=== PATIENT | male | born 1995 | race Caucasian/White ===

== ENCOUNTER 2016-07-30 10:14 | Emergency (ER) | payer MEDICAID ==
[~2016-07-30] VITALS: Ht 182.9 cm; Wt 63.5 kg
[2016-07-30] MEDS ORDERED: TDAP [DIPH/PERTUSSIS/TET] 0.5 ML VIAL IM ONE ×2 (10:20→10:30)
[2016-07-30] MEDS ORDERED: HYDROCODONE/APAP 10/325MG 1 EA TABLET ONE (10:20)
[2016-07-30] MEDS ORDERED: ONDANSETRON 4 MG TAB.RAPDIS ONE (10:20)
[2016-07-30] MEDS ORDERED: LIDOCAINE HCL/PF 1% 30 ML SDV ONE (10:20)
[2016-07-30] MEDS ORDERED: ONDANSETRON 4 MG TAB.RAPDIS SL ONE (10:30)
[2016-07-30] MEDS ORDERED: LIDOCAINE 1%-EPI 1:100,000 50 ML VIAL IJ ONE (10:30)
[2016-07-30] MEDS ORDERED: HYDROCODONE/APAP 10/325MG 1 EA TABLET PO ONE (10:30)
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
--- NOTE | 2016-07-30 10:50 | NUR ---
PT TAKEN TO CT.
[2016-07-30] MEDS ORDERED: IV NS 0.9% 500 ML IV ONE (10:54)
--- NOTE | 2016-07-30 10:54 | NUR ---
DEYSI,MOTHER, CALLED AT [phone] AND STATED THAT SHE IS ON HER WAY
[2016-07-30] MEDS ORDERED: IV SET PRIMARY PUMP SET 1 EA INFUS.SET MC ONE (10:55)
[2016-07-30] MEDS ORDERED: IV SET PRIMARY 1 EA INFUS.SET MC ONE (10:55)
[2016-07-30] MEDS ORDERED: IV NS 0.9% 500 ML BAG IV ONE (11:00)
[2016-07-30] MEDS ORDERED: CLINDAMYCIN 600 MG in IV D5W 100 ML IV ONE (11:00)
[2016-07-30 11:11] LABS: BASOPHILS % (AUTO) 0.5 % (0.0-2.0); EOSINOPHILS # (AUTO) 0.2 /CMM (0.0-0.7); HEMATOCRIT 40 % (39-51); HEMOGLOBIN 13.6 g/dL (13.5-17.5); LYMPHOCYTES # (AUTO) 2.4 /CMM (0.8-4.8); MEAN CORPUSCULAR HEMOGLOBIN 29 PG (26.0-33.0); MEAN CORPUSCULAR HGB CONC 34 g/dl (31.0-36.0); MEAN CORPUSCULAR VOLUME 87 fL (80-96); MONOCYTES # (AUTO) 0.5 /CMM (0.1-1.30); MONOCYTES % (AUTO) 7.3 % (2.0-12.0); NEUTROPHILS # (AUTO) 3.7 /CMM (1.8-8.9); NEUTROPHILS % (AUTO) 53.2 % (43.0-81.0); PLATELET COUNT (AUTO) 248 /CMM (150-450); RDW COEFFICIENT OF VARIATION 12.3 (11.5-15.0); RED BLOOD CELL COUNT(AUTO) 4.65 MIL/uL (4.5-6.0); WHITE BLOOD COUNT (AUTO) 6.8 K/uL (4.3-11.0)
[2016-07-30 11:18] LABS: CALCIUM, SERUM 8.4 mg/dL (8.5-10.1); CREATININE 0.9 mg/dL (0.6-1.3); POTASSIUM 4.2 mmol/L (3.5-5.1)
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
[2016-07-30 11:22] LABS: INR 0.96 (0.87-1.13)
--- NOTE | 2016-07-30 11:29 | NUR ---
PT IS REFUSING XR PELVIS, MD MADE AWARE
--- NOTE | 2016-07-30 11:48 | NUR ---
CALLED [facility] FOR READ ON CT
--- NOTE | 2016-07-30 12:04 | NUR ---
CALLED [facility] FOR STATUS OF REPORT - [facility] SAID THEY WILL CALL BACK
[2016-07-30] MEDS ORDERED: MORPHINE SULFATE INJ 4 MG/ML DISP.SYRIN ONE (12:08)
[2016-07-30] MEDS ORDERED: ONDANSETRON HCL/PF 4 MG/2 ML VIAL ONE (12:08)
[2016-07-30] MEDS ORDERED: ONDANSETRON HCL/PF 4 MG/2 ML VIAL IV ONE (12:30)
[2016-07-30] MEDS ORDERED: MORPHINE SULFATE INJ 2 MG/ML DISP.SYRIN IV ONE (12:30)
--- NOTE | 2016-07-30 12:30 | NUR ---
PRESENTED CASE TO MARTHA ZENG, CHARGE NURSE AT [facility] FOR TRAUMA TRANSFER. WILL SPEAK WITH ED PHYSICIAN AND CALL BACK WITH UPDATE
--- NOTE | 2016-07-30 12:36 | NUR ---
PT ACCEPTED TO [facility] FOR TRAUMA ACCEPTING TRAUMA SURGEON IS DR. BARNETT NURSING REPORT GIVEN TO MARTHA ZENG, CHARGE NURSE
--- NOTE | 2016-07-30 12:42 | NUR ---
CALLED [facility] ETA 30 MINUTES
[2016-07-30 12:47] VITALS: BP 139/77
--- NOTE | 2016-07-30 13:13 | NUR ---
REPORT GIVEN TO [facility] [address] FOR TRANSPORT TO [facility].
== END 2016-07-30 13:37 | disposition short-term general hospital (02) ==
LOC: ER 10:17
DX: S09.90XA Unspecified injury of head, initial encounter (principal); S02.2XXB Fracture of nasal bones, initial encounter for open fracture; S02.401A Maxillary fracture, unspecified side, initial encounter for closed fracture; S01.81XA Laceration without foreign body of other part of head, initial encounter; S01.511A Laceration without foreign body of lip, initial encounter; F17.200 Nicotine dependence, unspecified, uncomplicated; V19.9XXA Pedal cyclist (driver) (passenger) injured in unspecified traffic accident, initial encounter; Y93.89 Activity, other specified; Y92.89 Other specified places as the place of occurrence of the external cause; Y99.9 Unspecified external cause status
CPT/HCPCS: 36415; 70450-TC; 70486-TC; 71010-TC; 72125-TC; 80048-TC; 85025-TC; 85730-TC; 90715; A4606; A6402; A6403; G0480; J2270; J2405; J3490; J7040; J7060; L0172; Q0162; Z7610